=== PATIENT | male | born 1945 | race Caucasian/White ===

== ENCOUNTER → 2017-04-24 | Outpatient (CLI) | payer OTHER, MEDICARE | LOC: RAD 11:30 | DX: M15.0 Primary generalized (osteo)arthritis (principal); J18.1 Lobar pneumonia, unspecified organism ==

== ENCOUNTER → 2017-05-06 | Outpatient (CLI) | payer OTHER, MEDICARE | LOC: RAD 10:50 | DX: J18.9 Pneumonia, unspecified organism (principal) ==

== ENCOUNTER → 2017-05-23 | Outpatient (CLI) | payer OTHER, MEDICARE | LOC: RAD 08:41 | DX: J18.1 Lobar pneumonia, unspecified organism (principal) ==

== ENCOUNTER → 2017-06-11 | Outpatient (CLI) | payer OTHER, MEDICARE ==
[~2017-06-11] MED LIST: EXCEDRIN CAPLE1 EACH PO; HYDROCODONE-AP1 EAC6 PO; NEURONTIN 300300 M1 PO; PRESERVISION A1 EAC2 PO; SYMBICORT160 MCG/4. INH; ZYRTEC10 M5 PO
[2017-06-11 10:15] LABS: CREATININE 1.5 mg/dL (0.7-1.3)
== END ==
LOC: CAT 09:28
PROVIDERS: Family Medicine
DX: J90 Pleural effusion, not elsewhere classified (principal); R91.8 Other nonspecific abnormal finding of lung field; M25.78 Osteophyte, vertebrae

== ENCOUNTER → 2017-06-21 | Outpatient (CLI) | payer OTHER, MEDICARE | LOC: PET 08:27 | DX: J18.1 Lobar pneumonia, unspecified organism (principal); R22.2 Localized swelling, mass and lump, trunk; K57.30 Diverticulosis of large intestine without perforation or abscess without bleeding; N20.0 Calculus of kidney; J98.11 Atelectasis; J90 Pleural effusion, not elsewhere classified ==

== ENCOUNTER 2017-06-27 05:23 | Day surgery (SDC) | payer OTHER, MEDICARE ==
[~2017-06-27] VITALS: Ht 182.9 cm; Wt 90.7 kg
--- NOTE | ~2017-06-27 | S ---
[facility] [place] [address] SURGICAL PATH RPT PROCEDURE Name: MARTÍN MAURICE Room #: DEP [facility].#: [id number] Admission: 06/27/17 Date of : 49 Discharge: 06/27/17 Report #: [id number] Path Case #: [id number] PATHOLOGY REPORT COLLECTION DATE: 06/27/2017 RECEIVED DATE: 06/28/2017 SUBMITTING PHYS: Dr. Taiwo Rodas OTHER PHYS: Dr. Mac Aiken SPECIMEN(S) RECEIVED: A.RLL biopsy * * * * * * * * * * * * FINAL DIAGNOSIS: Lung, right lower lobe, bronchial biopsy: - Fragments with ulceration and granulation tissue. - Negative for malignancy. - Two fragments with benign bronchial mucosa as well as alveolated lung parenchyma showing mild chronic inflammation. COMMENT: Immunohistochemical stain is performed. (Block A1) AE1/AE3 - negative for malignancy [facility]: Dr. Emil Armas. The EBUS specimen and concurrent bronchial brushings sampled in [id number] showed no evidence of malignancy. Please refer to the separate report for complete details. (IUV:pit; 07/01/2017) PATHOLOGIST: Mia Hope M.D. REPORT ELECTRONICALLY SIGNED BY: Mia Hope M.D. DATE/TIME: 07/01/2017 15:25 * * * * * * * * * * * * GROSS PATHOLOGY: The specimen is received in formalin, labeled "Martín Maurice, RLL biopsy," and consists of multiple fragments of brown to dey soft tissue measuring 0.5 x 0.4 x 0.2 cm in aggregate dimensions. They are entirely submitted in cassette A1. (SDY; 06/28/2017) CLINICAL HISTORY: [facility] [place] [address] SURGICAL PATH RPT PROCEDURE Name: MARTÍN MAURICE Room #: DEP [facility] [place].Joel.#: [id number] Admission: 06/27/17 Date of : 49 Discharge: 06/27/17 Report #: [id number] Path Case #: [id number] INITIAL CPT CODE(S): A; 39534, 15988 Professional services performed by [facility] at [facility] [address] [facility] [address] [place] [address] Technical services performed by [facility] at [address] [place] [address], [facility] [address] [address]. [facility] [place] [address] PHONE: [phone] DIRECTOR: Jesus Wolf M.D. * * * END OF REPORT * * *
--- NOTE | ~2017-06-27 | P ---
[facility] [place] [address] PROCEDURE REPORT Name: SHRADDHA MAURICE Room #: DEP [facility].#: [id number] Admission: 06/27/17 Attend Phys: Taiwo Rodas MD Discharge: 06/27/17 Date of : 49 Report #: [id number] THIS REPORT FOR: //name// CC: Emil Aiken MD DATE OF SERVICE: 06/27/2017 PROCEDURE: Fiberoptic bronchoscopy with endobronchial ultrasound, sampling of lymph node 7 station as well as transbronchial biopsy, cytologic brushings and lavage in the right lower lobe and area of a right lower lobe mass. INDICATION: Right lower lobe mass, mediastinal lymph node staging and diagnostic workup for malignancy. PROCEDURE NOTATION: After discussing risks, benefits of planned procedure with the patient, he desired to proceed. After obtaining informed consent, he was brought to the operating room 6 where he was placed on continuous cardiopulmonary monitoring and placed under general endotracheal anesthesia by the anesthesia service. Please see their notes for details. Once sedate, the patient had an 8.[address]. A white light bronchoscope was inserted to confirm good positioning of the endotracheal tube. It was in a good position for endobronchial ultrasound visualization of the pretracheal lymph area. The mainstem, lobar, segmental and subsegmental bronchi were all explored and appeared patent with no significant anatomic variation or disease. The white light bronchoscope was then removed and the endobronchial ultrasound was inserted into the trachea. All lymph node stations were then assessed in the usual fashion. Findings with ultrasound included a 5 mm 11L lymph node. No significant 10R lymph node. A 4 mm 4R node. No significant 4L lymph node. A 3 mm 10R node and a 6 mm 11R node. Of significance was a 1 cm level 7 subcarinal lymph node. Six 25-gauge core needle samples were obtained of the level 7 lymph node. Rapid onsite pathology confirmed lymphatic tissue on the initial pass and then the subsequent five additional passes were made in this area. The endobronchial ultrasound device was then removed and the standard white light bronchoscope was then reinserted and positioned into the anterior segment of the right lower lobe. Fluoroscopy was utilized to assist with several brushings and forceps biopsies in the area of the lesion. Bronchial lavage was performed in this area at the end of procedure. The patient tolerated well. No noted complications. The patient recovered from anesthesia at the time of this dictation. IMPRESSION: PET avid right lower lobe pulmonary nodule with subcarinal lymph node noted on endobronchial ultrasound staging, status post sampling as outlined above. [address] [address] PROCEDURE REPORT Name: SHRADDHA MAURICE Room #: DEP [facility] Sara#: [id number] Admission: 06/27/17 Attend Phys: Taiwo Rodas MD Discharge: 06/27/17 Date of : 49 Report #: [id number] PLAN: Await pathology. <ELECTRONICALLY SIGNED> By: Taiwo Rodas MD 07/15/17 1535 1456 2151 Taiwo Rodas MD /nt
--- NOTE | ~2017-06-27 | CNG ---
[facility] [place] [address] CYTO-NONGYN REPORT PROCEDURE Name: MARTÍN MAURICE Room #: DEP [facility]#: [id number] Admission: 06/27/17 Date of : 49 Discharge: 06/27/17 Report #: [id number] Path Case #: [id number] CYTOPATHOLOGY REPORT COLLECTION DATE: 06/27/2017 RECEIVED DATE: 06/28/2017 SUBMITTING PHYS: Dr. Taiwo Rodas OTHER PHYS: Dr. Mac Aiken CLINICAL HISTORY: Lung Cancer. See also [id number]. SPECIMEN(S) RECEIVED: A.Fine needle aspiration, lymph node 7 B.Brushing, RLL C.Bronchoalveolar lavage, RLL * * * * * * * * * * * * FINAL DIAGNOSIS: A. Lymph node, lymph node 7, EBUS guided fine needle aspiration: - Negative for malignancy. - Lymphoid tissue present with numerous lymphoid tangles. - Few reactive bronchial epithelial cells as well as mucous glands present. B. Lung, right lower lobe, brushing: - No malignant cells identified. - Reactive bronchial epithelial cells and marked inflammation present. - Extensive air drying artifact obscuring interpretation. C. Lung, right lower lobe, bronchoalveolar lavage: - No malignant cells identified. - Reactive bronchial epithelial cells, alveolar macrophages and marked inflammation present. COMMENT: The concurrent biopsy tissue [id number] showed the same. Please see separate report for details. (IUV:db; 07/01/2017) PATHOLOGIST: Mia Hope M.D. REPORT ELECTRONICALLY SIGNED BY: Mia Hope M.D. DATE/TIME: 07/01/2017 15:46 * * * * * * * * * * * * GROSS PATHOLOGY: A. Fine needle aspiration, lymph node 7: The specimen is labeled " Martín Maurice" and consists of 2 H and E slides. Fifty mL of cloudy dey fluid in formalin from the needle rinse is also submitted and a formalin fixed cell block was prepared from this material. B. Brushing, RLL: The specimen is labeled "Martín Maurice" and consists of a brush tip in fixative and seven fixed slides. One ThinPrep slide was prepared. [place] [address] [place] [address] CYTO-NONGYN REPORT PROCEDURE Name: MARTÍN MARUICE Room #: [facility]#: [id number] Admission: 06/27/17 Date of : 49 Discharge: 06/27/17 Report #: [id number] Path Case #: [id number] C. Bronchoalveolar lavage, RLL: The specimen is submitted unfixed, labeled "Martín Maurice". Received by the Cytology Department is six mL of cloudy red fluid. One ThinPrep slide was prepared. (mm 06.28.2017) IMMEDIATE EVALUATION: A. Lymph node 7, fine needle aspiration (EBUS guided): Per Dr. Hope: Lymph node sampled; numerous lymphoid tangles and pigmented macrophages. Professional testing performed by [facility] at [address] [place] [address] MORTAR WORKER(S): JESSICA Morfin([facility]) INITIAL CPT CODE(S): A; 76571, 11393, 04999 B; 03980 C; 38617 Professional services performed by [facility] at [facility] [address] [facility] , [place] [address] Technical services performed by [facility] at [address] [place] [address], [address], [place] [address]. [facility] [address] [place] [address], [address] [place] [address] PHONE: [phone] DIRECTOR: Jesus Wolf M.D. * * * END OF REPORT * * *
--- NOTE | ~2017-06-27 | EKG ---
[place] [address] [address] 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
[~2017-06-27 05:23] MED LIST changes: -HYDROCODONE-AP1 EAC6 PO
[2017-06-27 11:24] LABS: HEMATOCRIT 39.6 % (42.0-52.0); HEMOGLOBIN 13.1 gm/dL (14.0-18.0); MCH 29.3 pg (26.0-34.0); MCHC 33.1 g/dL (28.0-37.0); MCV 88.6 fL (80.0-100.0); RBC 4.48 mil/uL (4.50-6.00); RDW 14.5 % (10.5-14.5); WBC 10.6 thou/uL (4.0-11.0)
[2017-06-27 11:25] VITALS: BP 146/81
[2017-06-27 11:35] LABS: INR 1.1
== END 2017-06-27 15:45 | disposition home or self-care (01) ==
LOC: OR 05:23 → TBA 05:23 → OR 11:22
PROVIDERS: Internal Medicine Pulmonary Disease
DX: J98.4 Other disorders of lung (principal); J45.909 Unspecified asthma, uncomplicated; Z87.891 Personal history of nicotine dependence; Z85.828 Personal history of other malignant neoplasm of skin; Z98.890 Other specified postprocedural states; Z98.41 Cataract extraction status, right eye; Z98.42 Cataract extraction status, left eye
CPT/HCPCS: 62110; 62900; 70005

== ENCOUNTER → 2017-07-09 | Outpatient (CLI) | payer OTHER, MEDICARE ==
[~2017-07-09] MED LIST changes: +HYDROCODONE-AP1 EAC6 PO
--- NOTE | ~2017-07-09 | PFR/MVV ---
[facility] [place] [address] PULMONARY FUNCTION MVV/REPORT Name: SHRADDHA MAURICE Room #: [facility]#: [id number] Admission: 07/09/17 Attend Phys: Taiwo Rodas MD Discharge: Date of : 49 Report #: [id number] THIS REPORT FOR: //name// >> SPIROMETRY: (BTPS) Height: 72 in cm Weight: 200 lbs kg Exam Date: 07/09/17 PRE-RX POST-RX PRED BEST %PRED BEST %PRED %CHG FVC LITERS . 4.61 . 5.87 . 127 . 5.98 . 130 . 2 FEV1 LITERS . 3.64 . 3.99 . 110 . 4.14 . 114 . 4 FEV1/FVC % . 78 . 68 . 87 . 69 . 89 . 2 LYX08-53% L/Sec . 3.57 . 2.92 . 82 . 3.26 . 91 . 12 PEF L/SEC . 8.78 . 8.78 . 100 . 8.06 . 93 . -7 FEF50/FIF50 UNITLESS . <1.00 . 0.77 . . 1.04 . . 36 MVV L/Min . 136 . 104 . 77 f 1/Min . . 70 . >> LUNG VOLUMES: (BTPS) PRE-RX POST-RX PRED AVG %PRED AVG %PRED %CHG VC Liters . 4.61 . 6.25 . 136 . . . TLC Liters . 7.00 . 9.15 . 131 . . . RV Liters . 2.66 . 2.90 . 109 . . . RV/TLC % . 40 . 32 . 78 . . . FRC [address] Liters . 3.90 . 4.82 . 123 . . . FRC N2 Liters . 3.90 . . . . . ERV Liters . . 1.92 . . . . IC Liters . . 4.17 . . . . >> DIFFUSION: DLCO ml/Min/mmHg . 23.4 . 22.8 . 97 . . . DL Migd[place] ml/Min/mmHg . 23.4 . 22.8 . 97 . . . DLCO/VA ml/Min/mmHg . 3.64 . 3.26 . 90 . . . VA Liters . . 6.99 . . . . COMMENTS: COMMENTS: >> RESISTANCE: [facility] [address] [place] [address] PULMONARY FUNCTION MVV/REPORT Name: SHRADDHA MAURICE Room #: [facility]#: [id number] Admission: 07/09/17 Attend Phys: Taiwo Rodas MD Discharge: Date of : 49 Report #: [id number] PRE-RX PRED AVG %PRED Raw Total cmH20/L/Sec . . 4.18 . Raw Insp cmH20/L/Sec . . 2.96 . Raw Exp cmH20/L/Sec . . 5.07 . Raw cmH20/L/Sec . 1.13 . 2.96 . 263 Gaw L/Sec/cmH20 . 0.937 . 0.338 . 36 sRaw cmH20 Sec . 4.39 . 10.33 . 235 sGaw l/cmH20 Sec . 0.228 . .097 . 43 Vtq Liters . . 3.49 . # = OUTSIDE 95% CONFIDENCE INTERVAL CALIBRATION: PRED: 3.00 ACTUAL: EXP 3.01 INSP 3.02 [facility] [place] [address] N-1804-4 >> INTERPRETATION/IMPRESSION: CC: Taiwo Torrese Nelli DATE OF SERVICE: 07/09/2017 The patient's pulmonary function studies revealed mild airflow obstruction; however, the FEV1 is normal. This may be a normal variant. No significant change with bronchodilators. Lung volume is normal DLCO. OVERALL IMPRESSION: Mild airflow obstruction may be normal variant. Otherwise, normal pulmonary function testing. <ELECTRONICALLY SIGNED> By: Tiawo Rodas MD 08/22/17 1123 Taiwo Rodas MD /nt
== END ==
LOC: PUL 09:20
DX: R91.8 Other nonspecific abnormal finding of lung field (principal)

== ENCOUNTER 2017-07-22 05:22 | Inpatient (IN) | payer OTHER, MEDICARE ==
[2017-07-16 11:48] LABS: URINE BILIRUBIN NEGATIVE (Negative); URINE BLOOD NEGATIVE (Negative); URINE CLARITY CLEAR; URINE COLOR YELLOW; URINE GLUCOSE-RANDOM* NEGATIVE (Negative); URINE KETONES NEGATIVE (Negative); URINE LEUKOCYTES-REFLEX NEGATIVE (Negative); URINE NITRITE-REFLEX NEGATIVE (Negative); URINE PROTEIN (DIPSTICK) NEGATIVE (Negative); URINE SPECIFIC GRAVITY 1.015 (1.005-1.035); URINE UROBILINOGEN 0.2 E.U./dl (0.2-1.0)
[~2017-07-22] VITALS: Ht 182.9 cm; Wt 93.0 kg
--- NOTE | ~2017-07-22 | O ---
[facility] [address] OPERATIVE REPORT Name: SHRADDHA MAURICE Room #: 206-P [facility] M.R.#: [id number] Admission: 07/22/17 Attend Phys: Emil Harrington MD Discharge: 07/26/17 Date of : 49 Report #: [id number] THIS REPORT FOR: //name// CC: Emil Aiken MD DATE OF SERVICE: 07/22/2017 PREOPERATIVE DIAGNOSIS: Right lower lobe infiltrate, persistent. POSTOPERATIVE DIAGNOSIS: Right lower lobe infiltrate, persistent. OPERATIVE PROCEDURE PERFORMED: 1. Right thoracotomy with right lower lobectomy. 2. Thoracic lymphadenectomy. SURGEON: Emil Harrington MD RN EXAMINER: Jairo Funes. ANESTHESIA: General. OPERATIVE INDICATIONS: The patient is a very pleasant 71-year-old male who has developed a cough and a right lower lobe infiltrate. He has been managed with multiple rounds of antibiotics; however, the infiltrate has been persistent. On PET imaging, there appeared to be evidence of a dense mass measuring 3.8 x 3.2. The uptake in the region was 8.9. These findings were suspicious for possible malignancy and thus it was felt that surgical evaluation would be necessary in order to establish a diagnosis. The patient was seen and evaluated by me in the office, and it was felt appropriate to proceed with thoracotomy for diagnostic and possible therapeutic purposes. OPERATIVE SUMMARY: The patient was brought to the operating room, placed on the OR table in supine position. After anesthesia was induced via general endotracheal route, monitoring lines had been positioned, the patient was placed in the left lateral decubitus position and prepped and draped in sterile fashion with chlorhexidine. I made a limited right lateral thoracotomy incision. I entered the pleural space to the sixth intercostal space. We found no evidence of pleural effusion, but did find the right lower lobe densely adherent to the diaphragm. Considerable effort was involved in dissecting the lobe from the diaphragm. Once we achieved that and mobilized the inferior pulmonary ligament, we incised the hilum posteriorly, anteriorly and inferiorly. We dissected the [address] [address] OPERATIVE REPORT Name: SHRADDHA MAURICE Room #: 206-P [facility] IN M.R.#: [id number] Admission: 07/22/17 Attend Phys: Emil Harrington MD Discharge: 07/26/17 Date of : 49 Report #: [id number] inferior pulmonary vein free from surrounding tissues and divided it with an endoscopic stapler. We then dissected in the fissure, found the pulmonary artery to the right lower lobe and divided it with an Endo-MERCY stapler as well. There was also an accessory branch to the apical segment of the lower lobe and we doubly ligated and divided it with silk ties. The fissure between the upper lobe and the lower lobe was completed with an Endo-MERCY stapler as was the fissure between the middle lobe and the lower lobe. The remaining bronchus was then divided with a TA 30 stapler with 4.8 mm colby. We ensured inflation of the middle lobe prior to firing the staple. Once this was completed, the specimen was removed. We then dissected the lymph nodes level 7 and sent them out as an en bloc packet of lymph nodes. The stump of the bronchus was oversewn with a 3-0 Vicryl suture. Once adequate hemostasis was achieved, we placed two 28-Cuban chest tubes, one in the base and one in the apex, bringing them out through separate stab incisions. The ribs were reapproximated with #1 PDS. Muscular layer was closed with #1 Vicryl, subQ fascia with 2-0 Vicryl and the skin with a 3-0 Monocryl. The procedure was completed. The patient was taken to the postanesthesia care unit in stable condition. The operative blood loss was about 100 mL. No intraoperative complications were noted. All sponge and needle counts were reported as correct. <ELECTRONICALLY SIGNED> By: Emil Harrington MD 08/20/17 1021 0949 1022 Emil Harrington MD /senia
--- NOTE | ~2017-07-22 | HC ---
[facility] [place] [address] CONSULTATION Name: SHRADDHA MAURICE Room #: 206-P [facility] IN .R.#: [id number] Admission: 07/22/17 Attend Phys: Emil Harrington MD Discharge: 07/26/17 Date of : 49 Report #: [id number] THIS REPORT FOR: //name// CC: EMIL Aiken MD DATE OF SERVICE: 07/22/2017 REFERRING PROVIDER: Emil Harrington MD REASON FOR CONSULTATION: Lung mass. HISTORY OF PRESENT ILLNESS: Our group was asked to assist with management of the patient, he is known to me with prior workup in the office initially seen earlier in June for evaluation of a right lower lobe mass-like lesion. The patient initially had symptoms in April of shortness of breath, perhaps cough, was initially started on Symbicort; however, a chest x-ray had shown a right lower lobe lesion consistent with what was thought to be pneumonia at that time. The patient has also been having about 15 pounds weight loss over the last [address] scan of the chest done in June as his infiltrate did not respond to multiple antibiotics including Augmentin. CT showed a 4 cm right lower lobe mass-like infiltrate near the pleural surface and diaphragm. The patient may have also had an additional right lower lobe nodule and there was a 1 cm subcarinal lymph node. He underwent fiberoptic bronchoscopy with attempted biopsy of the right lower lobe lesion as well as subcarinal fine needle aspirates under endobronchial ultrasound assistance, all of which were negative for any malignancy. A Strep organism was grown on culture, but was dismissed as the patient had been on antimicrobial therapy. A PET scan showed no sign of metastatic disease and subsequently underwent right lower lobe lobectomy earlier today, now resting comfortably in the ICU with reasonable pain control. ALLERGIES: None known. PAST MEDICAL HISTORY: 1. Allergic rhinitis. 2. Hyperlipidemia. 3. Low testosterone. 4. Peripheral neuropathy. 5. Mild asthma. PAST SURGICAL HISTORY: Includes nasal polyp surgery. FAMILY HISTORY: Significant for diabetes mellitus, type 2 and peripheral [facility] [address] [place] [address] CONSULTATION Name: MAURICESHRADDHA Room #: 206-P [facility] IN [facility].#: [id number] Admission: 07/22/17 Attend Phys: Emil Harrington MD Discharge: 07/26/17 Date of : 49 Report #: [id number] vascular disease in the mother, cerebrovascular accident in the father. SOCIAL HISTORY: The patient is an ex-smoker, quitting in 1979. Minimal alcohol consumption. REVIEW OF SYSTEMS: CONSTITUTIONAL: No fevers, chills or sweats. ENT: No upper respiratory congestion, rhinorrhea or dysphagia. CARDIOVASCULAR: No chest pain or palpitations. GASTROINTESTINAL: No nausea, vomiting or abdominal pain. GENITOURINARY: No dysuria, no frequency. INTEGUMENT: Denies any rash, has a history of squamous cell skin cancer. MUSCULOSKELETAL: No joint pains or swelling. PHYSICAL EXAMINATION: VITAL SIGNS: Afebrile, pulse 60s, respiratory rate 20, blood pressure is 141/65. GENERAL: A pleasant elderly male, in no distress, resting comfortably. HEENT: Clear oropharynx. NECK: Supple, no lymphadenopathy. LUNGS: Diminished on the right, otherwise clear. No wheezes. CARDIOVASCULAR: Heart regular. No murmurs. ABDOMEN: Soft, nontender, no masses. CHEST: Right-sided chest tube in place. EXTREMITIES: Without edema. Right upper extremity radial arterial catheter is in place. LABORATORY DATA: Postoperatively are pending. Chest x-ray reveals clear lung millan with good expansion. No pneumothorax. Right chest tubes in place. IMPRESSION: 1. PET-avid persistent right lower lobe mass worrisome for malignancy, status post right lower lobe lobectomy. 2. Postoperative atelectasis, minor so far on x-ray. Continue with incentive spirometry. Consider adding EzPAP, current aerosol treatments. 3. History of hyperlipidemia. SUGGESTIONS: Encourage incentive spirometry, bronchodilators, pain control. We will follow along with you mobilization and dietary intake as tolerated. Await final pathology. <ELECTRONICALLY SIGNED> By: Taiwo Rodas MD 08/02/17 1452 1836 0101 Taiwo Rodas MD /nt
--- NOTE | ~2017-07-22 | S ---
[facility] [place] [address] SURGICAL PATH RPT PROCEDURE Name: MARTÍN MAURICE Room #: 243-P ADM IN M.R.#: [id number] Admission: 07/22/17 Date of : 49 Discharge: Report #: [id number] Path Case #: [id number] PATHOLOGY REPORT COLLECTION DATE: 07/22/2017 RECEIVED DATE: 07/22/2017 SUBMITTING PHYS: Dr. Emil Harrington OTHER PHYS: Dr. Mac Aiken SPECIMEN(S) RECEIVED: A.Right lower lobe lung B.Mediastinal lymph nodes C.Level 7 lymph node * * * * * * * * * * * * FINAL DIAGNOSIS: A. 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 - Surrounding lung parenchyma showing extensive acute and chronic bronchitis along with fibroblastic foci compatible with organizing pneumonia. 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 - Negative for malignancy. - Bronchus proximal to fungal ball calcified and occluded. - Bronchial and vascular margins showing no evidence of malignancy. B. Lymph nodes (two) mediastinal lymph node, dissection: - Acute and chronic lymphadenitis associated with poorly formed granulomata. - Negative for malignancy. C. Lymph nodes (eleven), level 7 lymph nodes, dissection: - Acute and chronic lymphadenitis associated with poorly formed granulomata. - Negative for malignancy. COMMENT: Examination shows a fungal hyphal mass occluding the bronchus. The bronchus proximal to this mass appears calcified and is occluded. Extensive acute and chronic inflammation along with fibroblastic proliferation is identified within the surrounding lung parenchyma forming a poorly formed nodule with adenomatous hyperplasia as well as a minute carcinoid tumorlet. Immunohistochemical stains are performed on block A6. Synaptophysin: reactive within the tumorlet Chromogranin: reactive within the tumorlet [address] [address] SURGICAL PATH RPT PROCEDURE Name: MARTÍN MAURICE Room #: 243-P ADM IN ..#: [id number] Admission: 07/22/17 Date of : 49 Discharge: Report #: [id number] Path Case #: [id number] TTF-1: reactive P40: non-reactive Pulmonary carcinoid tumorlets (measuring less than 0.5 cm) usually constitute incidental findings in pulmonary tissue surgically excised for chronic lung disease, pulmonary fibrosis, chronic or granulomatous inflammation, bronchiectasis or giant cell pneumonitis. In most instances neuroendocrine cell hyperplasia and tumorlets are regarded as secondary tissue reaction to the lung involved in chronic obstructive pulmonary disease. These bear no prognostic significance. Acid fast bacillus performed on A7 is negative for mycobacterial elements. Gomori methenamine silver stain performed on A7- positive for fungal hyphal elements consistent with an aspergilloma. Co-review: Dr. Laura Gibson Findings are telephoned to Dr. Taiwo Rodas at approximately 12:45 p.m. on 07/23/2017. (IUV:mgr/pit; 07/23/2017) PATHOLOGIST: Mia Hope M.D. REPORT ELECTRONICALLY SIGNED BY: Mia Hope M.D. DATE/TIME: 07/24/2017 11:48 * * * * * * * * * * * * GROSS PATHOLOGY: A. Specimen received fresh labeled with "Martín Maurice - right lower lobe lung", and consists of a lobe of lung that weighs 289 grams and measures 15 x 10 x 5 cm. There are areas of hemorrhage and diffuse douglas-dey color, but no well-defined localized mass on palpation was identified. Dr. Emil Harrington indicated that on x-ray there was a diffuse process. The bronchial margins appeared grossly free. A section of the bronchial margin was taken but not frozen and submitted in cassette labeled A1. (SHA:joseph; 07/22/2017) The bronchi are further dissected (opened). The lining is glistening and dey with no masses or lesions identified; however, one bronchus and or vascular structure is markedly calcified. This area measures an approximate 0.6 x 0.5 x 0.5 cm. The lobe is serially sectioned revealing a vascular structure versus a bronchus to contain a 1.1 x 0.8 x 0.7 cm aggregate of friable brown amorphous material. This area is located roughly 4 cm from the bronchial margin. The inferior lobe parenchyma demonstrates vague orange pink areas of discoloration that account for roughly 20% of parenchyma. The remaining parenchyma is soft, dark red, maroon, with no distinct masses identified. There is one probable parabronchial lymph node candidates identified measuring 0.5 x 0.3 x 0.[address] [address] SURGICAL PATH RPT PROCEDURE Name: MARTÍN MAURICE Room #: 243-P ADM IN ..#: [id number] Admission: 07/22/17 Date of : 49 Discharge: Report #: [id number] Path Case #: [id number] The pleura demonstrates douglas white plaque-like areas near the diaphragmatic/inferior aspect of lobe. The remaining pleura is glistening, maude, pink, and maroon. There is no gross evidence of pleural puckering. (SHERMAN; 07/22/2017) A1 bronchial margin A2 vascular margins A3 calcified bronchus versus calcified vascular structure, decal A4-A5 additional bronchus A6-A7 amorphous material within bronchus versus vascular structure A8-A10 orange pink parenchyma of specimen A11 additional lung parenchyma A12 probable lymph node candidate B. Received in formalin labeled "Martín Maurice, mediastinal lymph node" and consists of 2 pink red lymph node candidates measuring 1.0 x 0.7 x 0.4 CM and 1.4 x 0.9 x 0.8 cm. The specimen is entirely submitted. B1 small lymph node candidate B2 large lymph node candidate C. Received in formalin labeled "Martín Maurice, level VII lymph nodes" and consists of a 2.5 x 1.7 x 1.5 cm lymph node candidate which is serially sectioned and entirely submitted C1-C3. (SHERMAN; 07/22/2017) INTRAOPERATIVE CONSULTATION (Anup Wilkinson M.D.) Lung "right lower lobe mass": - Diffuse thickening, no localized mass.. These findings were discussed with Dr. Emil Harrington and a written report was placed in the patient's chart. Testing performed by [facility] at [facility] [address] [place] [address] CLINICAL HISTORY: Right lower lobe mass and pulmonary nodule INITIAL CPT CODE(S): A; 04477, 62008, 78889, 00792, 04940, 53029, 67474, 32305 B, C; 53954(2) Professional services performed by [facility] at [facility] [address] [place] [address] Technical services performed by [facility] at [address] [place] [address], [address], [place] [address]. [facility] [address] [place] [address] SURGICAL PATH RPT PROCEDURE Name: MARTÍN MAURICE Room #: 243-P ADM IN M.R.#: [id number] Admission: 07/22/17 Date of : 49 Discharge: Report #: [id number] Path Case #: [id number] [facility] [address] [address] PHONE: [phone] DIRECTOR: Jesus Wolf M.D. * * * END OF REPORT * * *
--- NOTE | ~2017-07-22 | HC ---
[facility] [place] [address] CONSULTATION Name: SHRADDHA MAURICE Archie Room #: 243-P ADM IN M.R.#: [id number] Admission: 07/22/17 Attend Phys: Emil Harrington MD Discharge: Date of : 49 Report #: [id number] THIS REPORT FOR: //name// CC: Emil Aiken REASON FOR CONSULTATION: I was asked to evaluate concerning Aspergillus involvement of right lung mass. HISTORY OF PRESENT ILLNESS: The patient was a 71-year-old diagnosed with a right lower lobe mass in 01/2017. This was found by routine chest x-ray when he presented to the [facility] in followup for Agent [place] exposure. He is a past smoker. At that time, otherwise he felt well. Subsequently, he developed pneumonia symptoms in April and was treated with a 10-day course of Augmentin. Overall, his respiratory status improved, although he remained fatigued. He had had about a 15-pound weight loss associated with night sweats. Further evaluation by CAT scan showed evidence of a right lung infiltrate with central mass about 4 cm. Some increased adenopathy in the right lung region. No documented fever. Do not have any blood work. He underwent bronchoscopy with fine-needle aspirate and brushings. These were negative for malignancy. Strep anginosus grew from the cultures. AFB and fungus culture so far negative. This was done on 06/27/2017. He had no obstructing mass lesion evident. CT PET scan showed persistent right lower lobe mass and infiltrate. Because of failure for this area to resolve, he underwent thoracotomy yesterday for right lower lobe resection. No intraoperative complications. Pathology report preliminary shows evidence of Aspergillus in the airways. I discussed with the pathologist this evening. Silver stains are not out yet. The extent of the Aspergillus is yet to be determined. The patient does have underlying asthma and has been on inhalers. No prolonged corticosteroids. PAST MEDICAL HISTORY: Allergic rhinitis, hyperlipidemia, low testosterone, peripheral neuropathy and asthma. He has had nasal polyposis and nasal surgery for such. FAMILY HISTORY: Diabetes and peripheral vascular disease. SOCIAL HISTORY: He is a past smoker. No significant alcohol intake. 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 He was exposed to Agent [place] during his work. No history of tuberculosis exposure. REVIEW OF SYSTEMS: No cough or sputum production. No chest pain. No nausea, vomiting, diarrhea, dysuria or frequency. No rashes or arthritis. Postop symptoms, he has had a right chest tube in place and postoperative pain. PHYSICAL EXAMINATION: VITAL SIGNS: Afebrile and hemodynamically stable. [address] [address] CONSULTATION Name: SHRADDHA MAURICE Room #: 243-P [facility] IN M.R.#: [id number] Admission: 07/22/17 Attend Phys: mEil Harrington MD Discharge: Date of : 49 Report #: [id number] GENERAL: He is alert, cooperative and pleasant, in no acute distress. HEENT: Unremarkable. NECK: Supple, no adenopathy. LUNGS: Decreased breath sounds at right base posteriorly. HEART: Regular without murmur. ABDOMEN: Soft and nontender. EXTREMITIES: Unremarkable. LABORATORY STUDIES: Sodium 137, potassium 4.3, bicarbonate 26 and creatinine 1.1. Liver function tests are normal. Hemoglobin 12.1, white count 12.8 and platelet count 197,000. Preoperatively, his hemoglobin was 13.8 with a white count of 8.2. 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 Thus far, it is not clear whether this is an aspergilloma or whether this is invasive Aspergillus disease. The patient does have underlying asthma. I questioned whether he may have had a bullous lesion in this region that has subsequently developed infection, although this has not been confirmed by CAT scan or by pathologic study. Recommend awaiting silver stain that should be out tomorrow. We will check galactomannan level, Aspergillus antibodies, IgE level, sedimentation rate and quantitative immunoglobulins. No indication for antifungal therapy at this time. He has had a resection of the involved lobe. <ELECTRONICALLY SIGNED> By: Charles Reynolds MD 07/24/17 1021 [id number] Charles Reynolds MD /nt
[~2017-07-22 05:22] MED LIST changes: -HYDROCODONE-AP1 EAC6 PO
[2017-07-22 07:52] VITALS: BP 135/81
[2017-07-22 12:53] VITALS: BP 131/68
[2017-07-22 13:00] VITALS: BP 135/61
[2017-07-22 13:15] VITALS: BP 135/62
[2017-07-22 13:30] VITALS: BP 141/65
[2017-07-23] VITALS (14 sets, daily range): BP systolic 126–161; BP diastolic 61–143
[2017-07-23 05:38] LABS: HEMOGLOBIN 12.1 gm/dL (14.0-18.0); MCH 29.8 pg (26.0-34.0); MCHC 33.5 g/dL (28.0-37.0); MCV 88.9 fL (80.0-100.0); RBC 4.05 mil/uL (4.50-6.00); RDW 16.2 % (10.5-14.5); WBC 12.8 thou/uL (4.0-11.0)
[2017-07-23 05:52] LABS: ALBUMIN 2.9 g/dL (3.4-5.0); CALCIUM 8.3 mg/dL (8.5-10.1); CREATININE 1.1 mg/dL (0.7-1.3); MAGNESIUM 1.8 mg/dL (1.8-2.4); POTASSIUM 4.3 mmol/L (3.5-5.1); TOTAL BILIRUBIN 0.5 mg/dL (<0.1-1.0); TOTAL PROTEIN 6.4 g/dL (6.4-8.2)
[2017-07-24] VITALS (13 sets, daily range): BP systolic 112–149; BP diastolic 66–92
[2017-07-24 11:07] LABS: IgA 348 mg/dL (61-437); IgG 765 mg/dL (700-1600); IgM 49 mg/dL (20-172)
[2017-07-25 01:15] VITALS: BP 140/74
[2017-07-25 04:30] VITALS: BP 134/67
[2017-07-25 07:45] VITALS: BP 130/68
[2017-07-25 11:38] VITALS: BP 113/70
[2017-07-25 16:28] VITALS: BP 123/69
[2017-07-25 20:35] VITALS: BP 135/66
[2017-07-26 04:57] VITALS: BP 95/66
[2017-07-26 08:10] VITALS: BP 126/75
[2017-07-26 09:50] VITALS: BP 126/75
[2017-07-26] MEDS ORDERED: HYDROCODONE-AP1 EAC6 PO (09:52)
[2017-07-29 17:11] LABS: IgE 81 IU/mL (0-100)
[2017-08-05 12:06] LABS: HIV 1 AB Negative (Negative); HIV 2 AB Negative (Negative); HIV ANTIBODY Reactive (Non Reactive)
== END 2017-07-26 10:06 | disposition home or self-care (01) | DRG 164 ==
LOC: TBA 05:22 → ICU 05:22 → PRE 05:25 → ICU 12:52 → PRE 14:03 → ICU 07-23 17:54 → 2N 07-25 01:35
PROVIDERS: Nurse Practitioner; Specialist; Thoracic Surgery (Cardiothoracic Vascular Surgery)
PROC: 07B70ZZ Excision of Thorax Lymphatic, Open Approach (ICD-10-PCS; principal; 2017-07-22)
PROC: 4A133J1 Monitoring of Arterial Pulse, Peripheral, Percutaneous Approach (ICD-10-PCS; principal; 2017-07-22)
PROC: 03HY32Z Insertion of Monitoring Device into Upper Artery, Percutaneous Approach (ICD-10-PCS; principal; 2017-07-22)
PROC: 4A133B1 Monitoring of Arterial Pressure, Peripheral, Percutaneous Approach (ICD-10-PCS; principal; 2017-07-22)
PROC: 0BBF0ZZ Excision of Right Lower Lung Lobe, Open Approach (ICD-10-PCS; principal; 2017-07-22)
DX: J18.9 Pneumonia, unspecified organism (principal); J98.11 Atelectasis; B44.9 Aspergillosis, unspecified; E78.5 Hyperlipidemia, unspecified; G62.9 Polyneuropathy, unspecified; R91.8 Other nonspecific abnormal finding of lung field; J45.909 Unspecified asthma, uncomplicated; Z83.3 Family history of diabetes mellitus; Z82.49 Family history of ischemic heart disease and other diseases of the circulatory system; Z82.3 Family history of stroke; Z87.891 Personal history of nicotine dependence; Z79.899 Other long term (current) drug therapy
CPT/HCPCS: 10078; 10081; 10204; 47405; 50010; 50101; 50386; 50417; 50455; 50497; 50739; 50740; 51301; 51717; 52301; 52303; 54022; 56524; 56525; 56526; 56527; 56528; 62110; 62900; 65002; 65020; 65040; 65075; 65105; 70005

== ENCOUNTER → 2017-08-12 | Outpatient (CLI) | payer OTHER, MEDICARE ==
[~2017-08-12] MED LIST changes: +HYDROCODONE-AP1 EAC6 PO
== END ==
LOC: RAD 14:00
DX: R91.8 Other nonspecific abnormal finding of lung field (principal); Z98.890 Other specified postprocedural states

== ENCOUNTER → 2018-10-10 | Outpatient (CLI) | payer OTHER, MEDICARE | LOC: RAD 09:44 | DX: R06.02 Shortness of breath (principal); Z86.19 Personal history of other infectious and parasitic diseases; Z98.890 Other specified postprocedural states; Z90.2 Acquired absence of lung [part of] ==

== ENCOUNTER → 2019-10-06 | Outpatient (CLI) | payer OTHER, MEDICARE | LOC: SJCVCIMAG 07:26 | DX: I08.2 Rheumatic disorders of both aortic and tricuspid valves (principal); E78.5 Hyperlipidemia, unspecified; Z79.82 Long term (current) use of aspirin; Z79.899 Other long term (current) drug therapy; Z87.891 Personal history of nicotine dependence ==

== ENCOUNTER → 2020-10-10 | Outpatient (CLI) | payer OTHER, MEDICARE | LOC: SJCVCIMAG 07:33 | PROVIDERS: ATTEND Internal Medicine | DX: I35.2 Nonrheumatic aortic (valve) stenosis with insufficiency (principal); I35.8 Other nonrheumatic aortic valve disorders; E78.5 Hyperlipidemia, unspecified; K21.9 Gastro-esophageal reflux disease without esophagitis; I73.9 Peripheral vascular disease, unspecified; G62.9 Polyneuropathy, unspecified ==

== ENCOUNTER → 2021-04-11 | Outpatient (CLI) | payer OTHER, MEDICARE | LOC: SJCVCIMAG 08:07 | PROVIDERS: ATTEND Internal Medicine | DX: I08.2 Rheumatic disorders of both aortic and tricuspid valves (principal); R00.1 Bradycardia, unspecified; E78.5 Hyperlipidemia, unspecified; R06.00 Dyspnea, unspecified ==